=== PATIENT | male | born 1940 | race Caucasian/White ===

== ENCOUNTER → 2017-11-23 | Day surgery (SDC) | payer OTHER ==
[~2017-11-23] MED LIST: AMITRIPTYLINE H25 MG PO; DOXAZOSIN MESYLA1 MG PO; FORTAMET1000 MG PO; GABAPENTIN600 MG PO; JANUVIA100 MG PO; LISINOPRIL2.5 MG PO; SIMVASTATIN10 MG PO; [UNRECOGNIZED DRUG - OTHER] PO
== END | disposition home or self-care (01) ==
LOC: ADM 11-18 09:15 → CIR.AMB 06:00
DX: M65.842 Other synovitis and tenosynovitis, left hand (principal)

== ENCOUNTER 2021-04-28 10:52 | Emergency (ER) | payer OTHER ==
[~2021-04-28] VITALS: Ht 180.3 cm; Wt 91.6 kg
[~2021-04-28 10:52] MED LIST changes: +SIMVASTATIN5 MG
== END 2021-04-28 13:20 | disposition home or self-care (01) ==
LOC: ER 10:52
DX: R06.02 Shortness of breath (principal); M54.59 Other low back pain